=== PATIENT | female | born 1985 | race Caucasian/White ===

== ENCOUNTER 2023-11-14 14:54 | Emergency (ER) | payer MEDICAID ==
[~2023-11-14] VITALS: Ht 162.6 cm; Wt 94.3 kg
[2023-11-14 15:38] VITALS: BP 171/99; PULSE 84; RESP 17; TEMP 98.2; O2SAT 98
[2023-11-14] MEDS ORDERED: OFLO5SOL27 RIGHT EAR (16:22)
[2023-11-14 16:29] VITALS: BP 125/80; PULSE 80; RESP 16; TEMP 98.2; O2SAT 99
== END 2023-11-14 16:29 | disposition home or self-care (01) ==
LOC: MED 14:54
DX: T16.1XXA Foreign body in right ear, initial encounter (principal); H60.91 Unspecified otitis externa, right ear; Z79.2 Long term (current) use of antibiotics
CPT/HCPCS: 99284

== ENCOUNTER 2023-11-17 11:26 | Emergency (ER) | payer MEDICAID ==
[~2023-11-17] VITALS: Ht 162.6 cm; Wt 94.3 kg
[~2023-11-17 11:26] MED LIST: OFLO5SOL27 RIGHT EAR
[2023-11-17 11:29] VITALS: BP 164/104; PULSE 97; RESP 17; TEMP 97.7; O2SAT 97
[2023-11-17] MEDS ORDERED: HC/N10SU58 RIGHT EAR (12:21)
[2023-11-17] MEDS ORDERED: HYDR25CA1 PO (12:21)
[2023-11-17 13:01] VITALS: BP 145/97; PULSE 97; RESP 17; TEMP 97.7; O2SAT 97
== END 2023-11-17 13:02 | disposition home or self-care (01) ==
LOC: MED 11:26
DX: H60.91 Unspecified otitis externa, right ear (principal); Z79.899 Other long term (current) drug therapy
CPT/HCPCS: 99283

== ENCOUNTER 2023-12-07 12:50 | Emergency (ER) | payer MEDICAID ==
[~2023-12-07] VITALS: Ht 162.6 cm; Wt 94.3 kg
[~2023-12-07 12:50] MED LIST changes: +HC/N10SU58 RIGHT EAR; +HYDR25CA1 PO
[2023-12-07 12:55] VITALS: BP 160/99; PULSE 89; RESP 16; TEMP 98.4; O2SAT 99
[2023-12-07] MEDS ORDERED: COROTSOL RIGHT EAR (13:29)
== END 2023-12-07 13:39 | disposition home or self-care (01) ==
LOC: MED 12:50
DX: H60.91 Unspecified otitis externa, right ear (principal); Z79.899 Other long term (current) drug therapy
CPT/HCPCS: 99283